=== PATIENT | female | born 1975 | race Caucasian/White ===

== ENCOUNTER 2020-12-23 15:23 | Emergency (ER) | payer SELFPAY ==
[~2020-12-23] VITALS: Ht 160 cm; Wt 113.4 kg
== END 2020-12-23 18:01 | disposition left against medical advice (07) ==
LOC: ER 15:23
DX: Z71.51 Drug abuse counseling and surveillance of drug abuser (principal); Z53.21 Procedure and treatment not carried out due to patient leaving prior to being seen by health care provider
CPT/HCPCS: 99283

== ENCOUNTER 2020-12-24 07:31 | Emergency (ER) | payer SELFPAY ==
[~2020-12-24] VITALS: Ht 160 cm; Wt 113.4 kg
[2020-12-24 08:38] LABS: BASOPHILS ABSOLUTE AUTO 0.03 K/mm3 (0.00-0.23); BASOPHILS PERCENT AUTO 0 % (0-2); EOSINOPHILS ABSOLUTE AUTO 0.06 K/mm3 (0.00-0.68); EOSINOPHILS PERCENT AUTO 1 % (0-6); Hematocrit 43.4 % (33.0-51.0); Hemoglobin 14.3 g/dL (11.5-16.0); IMMATURE GRAN ABSOLUTE AUTO 0.03 K/mm3 (0.00-0.10); IMMATURE GRAN PERCENT AUTO 0 % (0-1); LYMPHOCYTES ABSOLUTE AUTO 1.28 K/mm3 (0.84-5.20); LYMPHOCYTES PERCENT AUTO 12 % (21-46); MONOCYTES PERCENT AUTO 5 % (4-13); Mean Corpuscular HGB 28.4 pg (26.0-34.0); Mean Corpuscular HGB Conc 32.9 g/dL (31.5-36.5); Mean Corpuscular Volume 86 fL (80-100); Mean Platelet Volume 9.4 fL (9.1-12.4); NEUTROPHILS ABSOLUTE AUTO 8.74 K/mm3 (1.96-9.15); NEUTROPHILS PERCENT AUTO 82 % (41-73); Platelet Count 355 K/mm3 (150-400); RDW Coefficient Variation 12.8 % (11.7-14.2); RDW Standard Deviation 39.9 fL (35.1-46.3); Red Blood Cell Count 5.03 M/mm3 (3.80-5.20); White Blood Cell Count 10.64 K/mm3 (4.00-11.30)
[2020-12-24 09:00] LABS: Alanine Aminotransfer (ALT/SGP 32 U/L (12-78); Albumin, Blood 3.4 g/dL (3.4-5.0); Albumin/Globulin Ratio 0.8 (0.8-1.8); Alk Phos 74 U/L (50-136); Anion Gap 6 mmol/L (6-16); Aspartate Aminotrans (AST/SGOT 20 U/L (12-37); Bilirubin, Total 0.6 mg/dL (0.1-1.0); Blood Urea Nitrogen 6 mg/dL (8-24); Bun/Creatinine Ratio 11.6 (12.0-20.0); CO2, Blood 24 mmol/L (21-32); Calcium, Blood 8.9 mg/dL (8.5-10.1); Chloride, Blood 107 mmol/L (98-108); Creatinine, Blood 0.52 mg/dL (0.40-1.00); Globulin, Blood 4.3 g/dL (2.2-4.0); Glomerular Filtration Rate >60 (60-); Glucose, Blood 123 mg/dL (70-99); Potassium, Blood 3.8 mmol/L (3.5-5.5); Sodium, Blood 137 mmol/L (136-145); Total Protein, Blood 7.7 g/dL (6.4-8.2)
[2020-12-24 10:27] LABS: Source, Urine Catheter
[2020-12-24 10:34] LABS: Appearance, Urine Clear (Clear); Bilirubin, Urine Neg (Neg); Blood, Urine Neg (Neg); Color, Urine Yellow (P-Yellow); Glucose Qualitative, Urine Neg (Neg); Ketones, Urine 2+ (Neg); Leukocyte Esterase, Urine Neg (Neg); Nitrite, Urine Neg (Neg); Protein, Urine Neg (Neg); Urobilinogen, Urine NORM (Normal)
== END 2020-12-24 16:02 | disposition home or self-care (01) ==
LOC: ER 07:31
PROVIDERS: Emergency Medicine
DX: F11.20 Opioid dependence, uncomplicated (principal); F17.210 Nicotine dependence, cigarettes, uncomplicated; Z71.51 Drug abuse counseling and surveillance of drug abuser
CPT/HCPCS: 36415; 80053; 81003; 83690; 84703; 85025; 93005; 93010; 96374; 96375; 99284-25; A9270; J1790; J2550; P9612

== ENCOUNTER → 2021-02-24 | Outpatient (CLI) | payer OTHER ==
[2021-02-24 15:22] LABS: Source, Urine Clean Catch
[2021-02-24 17:51] LABS: Appearance, Urine Clear (Clear); Bilirubin, Urine Neg (Neg); Blood, Urine Neg (Neg); Color, Urine Yellow (P-Yellow); Glucose Qualitative, Urine Neg (Neg); Ketones, Urine Neg (Neg); Leukocyte Esterase, Urine Neg (Neg); Nitrite, Urine Neg (Neg); Protein, Urine 1+ (Neg); Specific Gravity, Urine 1.015 (1.003-1.022); Urobilinogen, Urine NORM (Normal)
== END | disposition home or self-care (01) ==
LOC: LAB 15:20 → LAB SHORT 15:20
PROVIDERS: Family Medicine
DX: I10 Essential (primary) hypertension (principal)
CPT/HCPCS: 82043; 87086

== ENCOUNTER 2022-01-02 09:13 | Inpatient (IN) | payer OTHER ==
[~2022-01-02] VITALS: Ht 160 cm; Wt 112.0 kg
[2022-01-02 10:32] LABS: BASOPHILS ABSOLUTE AUTO 0.07 K/mm3 (0.00-0.23); BASOPHILS PERCENT AUTO 0 % (0-2); EOSINOPHILS ABSOLUTE AUTO 0.11 K/mm3 (0.00-0.68); EOSINOPHILS PERCENT AUTO 1 % (0-6); Hematocrit 42.6 % (33.0-51.0); IMMATURE GRAN ABSOLUTE AUTO 0.13 K/mm3 (0.00-0.10); IMMATURE GRAN PERCENT AUTO 1 % (0-1); LYMPHOCYTES PERCENT AUTO 3 % (21-46); MONOCYTES ABSOLUTE AUTO 0.24 K/mm3 (0.16-1.47); MONOCYTES PERCENT AUTO 1 % (4-13); Mean Corpuscular HGB 28.4 pg (26.0-34.0); Mean Corpuscular HGB Conc 32.9 g/dL (31.5-36.5); Mean Corpuscular Volume 86 fL (80-100); Mean Platelet Volume 9.3 fL (9.1-12.4); NEUTROPHILS ABSOLUTE AUTO 17.76 K/mm3 (1.96-9.15); NEUTROPHILS PERCENT AUTO 94 % (41-73); Platelet Count 307 K/mm3 (150-400); RDW Coefficient Variation 13.2 % (11.7-14.2); RDW Standard Deviation 41.1 fL (35.1-46.3); Red Blood Cell Count 4.93 M/mm3 (3.80-5.20); White Blood Cell Count 18.81 K/mm3 (4.00-11.30)
[2022-01-02 10:37] LABS: Influenza A, PCR NEGATIVE (NEGATIVE); Influenza B, PCR NEGATIVE (NEGATIVE); Resp Syncytial Virus, PCR NEGATIVE (NEGATIVE); SARS-Cov-2 (COVID-19) PCR, MMC NEGATIVE (NEGATIVE)
[2022-01-02 10:45] LABS: Albumin, Blood 2.7 g/dL (3.4-5.0); Albumin/Globulin Ratio 0.6 (0.8-1.8); Bilirubin, Direct 0.2 mg/dL (0.0-0.3); Bilirubin, Indirect 0.6 mg/dL (0.1-0.7); Bilirubin, Total 0.8 mg/dL (0.1-1.0); Bun/Creatinine Ratio 10.8 (12.0-20.0); Calcium, Blood 8.4 mg/dL (8.5-10.1); Creatinine, Blood 0.74 mg/dL (0.40-1.00); Globulin, Blood 4.9 g/dL (2.2-4.0); Magnesium, Blood 1.5 mg/dL (1.6-2.4); Phosphorus, Blood 1.6 mg/dL (2.5-4.9); Total Protein, Blood 7.6 g/dL (6.4-8.2)
[2022-01-02] MEDS ORDERED: Aspir 8181 MG PO (15:33)
[2022-01-02] MEDS ORDERED: Vitamin D1000 UNI1 PO (15:33)
[2022-01-02] MEDS ORDERED: GABA300 PO (15:35)
--- NOTE | 2022-01-02 15:37 | NUR ---
PT ADMITTED TO 356 AT 1415. REPORT RECEIVED FROM MEL READ IN ER. PT TX TO BED, PARTIAL BEDBATH GIVEN DUE TO COVERED IN URINE. WOUNDS TO LEGS PHOTOGRAPHED AND CLEANSED WITH WOUND CLEANSER, PATTED DRY WITH GAUZE AND COVERED WITH EXUDRY PADS AND WRAPPED WITH KERLEX AND SECURED WITH TAPE. WOUNDS TO BOTH LEGS DRAINING LARGE AMOUNT OF CLEAR NON ODOROUS DRAINAGE. SOME WOUNDS APPEAR TO HAVE WHITE TOP SO PLACED IN CONTACT ISOLATION PRECAUTION. IV FLUIDS STARTED AT WO X 1000 MLS AFTER VANCO FINISHED INFUSING. PT IS A/O X 4 REPORTS PAIN TOLERABLE EXCEPT WHEN MOVING LEGS. ON BEDREST AT THIS TIME. PURWICK PLACED FOR PT COMFORT. ADVISED HER TO HOLD URINE SHE IS CONTINENT AND INFORMED HER WE NEED A URINE SAMPLE TO CHECK FOR INFECTION AND COMPLETE TEST. PT VU. WILL OBTAIN SAMPLE VIA BEDPAN WHEN SHE REPORTS SHE HAS TO URINATE. SPOUSE IN TROOM WITH PT.
[2022-01-02 17:06] LABS: Source, Urine Straight Cath
[2022-01-02 17:11] LABS: Appearance, Urine Hazy (Clear); Bilirubin, Urine Neg (Neg); Blood, Urine 2+ (Neg); Color, Urine Amber (P-Yellow); Glucose Qualitative, Urine Neg (Neg); Ketones, Urine Neg (Neg); Leukocyte Esterase, Urine 3+ (Neg); Nitrite, Urine Pos (Neg); Protein, Urine 2+ (Neg); Urobilinogen, Urine 1+ (Normal)
[2022-01-02 17:17] LABS: White Blood Cells, Urine 25-50 /hpf (0-5)
[2022-01-02 17:18] LABS: Bacteria Many /hpf; Squamous Epithelial Cells Few /hpf (Few); Transitional Epithelial Cells Rare /hpf (0-Rare)
--- NOTE | 2022-01-02 18:08 | NUR ---
SHIFT SUMMARY: PT A/O X 4 BEDREST AT THIS TIME EXCEPT TO GO TO THE BATHROOM. PURWICK IN PLACE PT HAS NOT BEEN ABLE TO GET UP IN TIME DUE TO URGENCY. DRAINING PHOEBE COLORED URINE. PT WOUNDS PHOTOGRAPHED, CLEANSED AND DRESSINGS APPLIED DUE TO EXCESSIVE DRAINAGE. PT PLACED IN CONTACT PRECAUTIONS UNTIL CULTURE REPORT RECEIVED WOUNDS LOOK SUSPICIOUS OF MRSA. PT PAIN MANAGED AT THIS TIME. PT REPORTS WOUNDS DEVELOPED 10 DAYS AGO AND PROGRESSIVELY WORSENED. PT RESTING IN BED WATCHING TV AT THIS TIME. SPOUSE IN ROOM. PT ATE 100% OF MEAL AND HAS NO COMPLAINTS AT THIS TIME. WILL REPORT TO NOC RN.
--- NOTE | 2022-01-03 04:24 | NUR ---
PT AT START OF SHIFT WITH FEVER (102.1/101.7). MEDICATED WITH TYLENOL AND TORADOL. PT ALSO C/O OF PAIN TO BLE. THIS MORNING PT CALLED CRYING IN PAIN STATES SHE HAS SEVERE PAIN TO HER RUQ AND TENDER WHEN TOUCHED/PRESSED. DENIES ANY HX OF GALLBLADDER ISSUES. PT STATES PAIN WAS THERE ALL NIGHT HOWEVER JUST RECENTLY IT BECAME SEVERE. PT MEDICATED WITH TORADOL AND REPORTS PAIN AFTERWARDS BEING A 9. UPDATED WITH ORDERS FOR RUQ ULTRASOUND, FENTANYL X1 DOSE, AND CBC/CMP. DRESSINGS TO BLE CHANGED.
[2022-01-03 15:36] LABS: BASOPHILS ABSOLUTE AUTO 0.02 K/mm3 (0.00-0.23); BASOPHILS PERCENT AUTO 0 % (0-2); EOSINOPHILS ABSOLUTE AUTO 0.06 K/mm3 (0.00-0.68); EOSINOPHILS PERCENT AUTO 1 % (0-6); Hematocrit 37.6 % (33.0-51.0); Hemoglobin 12.4 g/dL (11.5-16.0); IMMATURE GRAN ABSOLUTE AUTO 0.15 K/mm3 (0.00-0.10); IMMATURE GRAN PERCENT AUTO 1 % (0-1); LYMPHOCYTES ABSOLUTE AUTO 0.62 K/mm3 (0.84-5.20); LYMPHOCYTES PERCENT AUTO 5 % (21-46); MONOCYTES ABSOLUTE AUTO 0.74 K/mm3 (0.16-1.47); MONOCYTES PERCENT AUTO 6 % (4-13); Mean Corpuscular HGB 28.4 pg (26.0-34.0); Mean Corpuscular Volume 86 fL (80-100); Mean Platelet Volume 9.9 fL (9.1-12.4); NEUTROPHILS ABSOLUTE AUTO 10.92 K/mm3 (1.96-9.15); NEUTROPHILS PERCENT AUTO 87 % (41-73); Platelet Count 273 K/mm3 (150-400); RDW Coefficient Variation 13.1 % (11.7-14.2); RDW Standard Deviation 40.8 fL (35.1-46.3); Red Blood Cell Count 4.37 M/mm3 (3.80-5.20); White Blood Cell Count 12.51 K/mm3 (4.00-11.30)
[2022-01-03 15:53] LABS: Albumin/Globulin Ratio 0.5 (0.8-1.8); Bilirubin, Total 0.5 mg/dL (0.1-1.0); Bun/Creatinine Ratio 18.4 (12.0-20.0); Calcium, Blood 7.9 mg/dL (8.5-10.1); Creatinine, Blood 0.87 mg/dL (0.40-1.00); Globulin, Blood 4.2 g/dL (2.2-4.0); Potassium, Blood 3.4 mmol/L (3.5-5.5); Total Protein, Blood 6.2 g/dL (6.4-8.2)
--- NOTE | 2022-01-03 17:45 | NUR ---
SHIFT SUMMARY: PT RESTING IN BED AT THE BEGGINNING OF THE SHIFT. PT STATED NO PAIN THROUGHOUT THE SHIFT. PT BLOOD CULTURES POSTIVE FOR GRAM NEGATIVE BACTERIA. PT WILL CONTIUNE ROCEPHIN IV ANTIBIOTICS. PT PPIV WERE DC AND A POWERGLIDE WAS INSERTED IN HER CAMRYN. DR. PETERS DC VANCOMYCIN IV ANTIBIOTICS. PT HAS A WOUND CONSTULTATION FOR BLE. PT WOUND ON RLE CONTIUNES TO HAVE CLEAR YELLOW DISCHARGE. DR. PETERS CHANGE WOUND DRESSING TO OPEN AIR. PT HAS NASUEA TOWARDS THE END OF THE SHIFT. PT GIVEN PO ZOFRAN PER EMAR PROTOCOL. PT HAD HER BOYFRIEND VISIT AT THE END OF THE SHIFT. PT WAS FALLING ASLEEP IN THE MIDDLE OF A CONVERSATION. PT QUICKLY AUROSED WHEN ASKED IF SHE WAS SLEEPY. DR. PETERS ORDERED POTASSIUM AND LASIX TO THE EMAR. PT RESTING IN BED WITH CALL LIGHT WITHIN REACH.
[2022-01-03 20:25] LABS: Vancomycin, Trough 23.9 ug/mL (5.0-10.0)
--- NOTE | 2022-01-04 05:17 | NUR ---
SUMMARY: PT A/OX4, IS PLEASANT AND COOPERATIVE W/CARE AND CALLS APPROPRIATELY TO SPECIFY NEEDS. BLE CELLULITIS W/BOTH INTACT AND POPPED BLISTERS OBSERVED. LEGS LEFT ALBERT PER MD INSTRUCTION AND AIR CHUCKS REPLACED PRN FOR WEAPING. LEGS ELEVATED IN BED. PUREWIC CATH IS IN PLACE FOR WEAKNESS, LIMITED MOBILITY R/T CELLULITIS AND URGE INCONTINENCE. NS AT TKVO TO PG D/T PT BEING DIFFICULT IV START. VANCOMYCIN BEING MANAGED BY PHARMACY AND WAS RECIEVED THIS AM. TRAZADONE PROVIDED AT HS PER PT REQUEST AND PT SLEPT MUCH OF NOCTE. NO ACUTE CHANGES, VSS/AFEBRILE. WCTM AND REPORT TO DAY RN.
[2022-01-04 05:31] LABS: Hematocrit 35.2 % (33.0-51.0); Hemoglobin 11.5 g/dL (11.5-16.0); Mean Corpuscular HGB 28.2 pg (26.0-34.0); Mean Corpuscular HGB Conc 32.7 g/dL (31.5-36.5); Mean Corpuscular Volume 86 fL (80-100); Platelet Count 263 K/mm3 (150-400); RDW Coefficient Variation 13.2 % (11.7-14.2); RDW Standard Deviation 41.5 fL (35.1-46.3); Red Blood Cell Count 4.08 M/mm3 (3.80-5.20); White Blood Cell Count 9.82 K/mm3 (4.00-11.30)
[2022-01-04 06:02] LABS: Anion Gap 7 mmol/L (6-16); Blood Urea Nitrogen 19 mg/dL (8-24); Bun/Creatinine Ratio 18.3 (12.0-20.0); CO2, Blood 26 mmol/L (21-32); Chloride, Blood 99 mmol/L (98-108); Creatinine, Blood 1.04 mg/dL (0.40-1.00); Glomerular Filtration Rate 67 (60-); Glucose, Blood 121 mg/dL (70-99); Magnesium, Blood 1.7 mg/dL (1.6-2.4); Phosphorus, Blood 3.5 mg/dL (2.5-4.9); Potassium, Blood 3.3 mmol/L (3.5-5.5); Sodium, Blood 132 mmol/L (136-145)
--- NOTE | 2022-01-04 09:00 | NUR ---
PT PLEASANT COOP A/O X3 ABLE TO TELL ME DATE, AGE , PLACE, EVENT, HOSP. PRESIDENT. STATES HOMELESS, BUT LIVES IN CAR WITH . STATES NEITHER WORK. H/R REG, NO MURMUR NOTED. NO TELE. LUNGS CLEAR T/O LIGHTLY DIM BASES. RESP EASY, UNLABORED ON R/A. BT X4 LAST BM YEST PER PT. VOIDS PERIWICK DRAINING TO SUCTION ON WLL. LOW SUCTION. LEGS BELOW KNEES SWOLLEN, WARM RED, BLISTERS. SEE PIX IN CHART. WOUND CLINIC TO COME SEE PT AND MAKE ORDERS FOR BEST PLAN. BED IN LOW POSITION, CALLLITE IN REACH, CALLS APROP. .
--- NOTE | 2022-01-04 09:48 | NUR ---
WOUND ASSESSMENT AND PHOTO IN HARD CHART. WOUND CARE ORDERS IN [facility].
--- NOTE | 2022-01-04 15:36 | NUR ---
PT C/O DIFFICULTY CHEWING, NO TEETH. CHANGED TO SOFT BITE DIET PER HER REQUEST
--- NOTE | 2022-01-04 17:01 | NUR ---
Arrived to Pt's room with BEHAVIORAL SERVICES TECH activated. Pt became non responsive and barely breathing. Pt given Narcan with good effect. Spoke with spouse Weston out in the cerrato. Spouse reports Pt starting slurring her words during visit. Provided update on plan of care to spouse. Spoke with jessenia and plan is for Pt to transfer to ICU with PCU status. Palliative Care will remain available for therapeutic visits.
--- NOTE | 2022-01-04 17:07 | NUR ---
Responding to Code Blue, re-assigned Rapid Response This insulation blower identified the Pts. spouse in the hallway while the rapid team worked on Pt. spouse had visited Pt. prior to the code. Spouse verbalized that he had contacted the nurse when Pt. displayed evidence of slurred speech and became non responsive. Spouse respected the boundaries and allowed Medical team to work with Pt. Spouse displayed evidence of understanding the reasons for moving the Pt. to a different room. Pt. relocated to ICU 15. This insulation blower recommended that the spouse bring the Pts. dog to the vehicle. Spouse returned to ICU where he was asked to wait in the hallway until staff got the settled in to her new room.
--- NOTE | 2022-01-04 17:26 | NUR ---
0810 CBG 43 PER AIDE. PT AWAKE, TALKING. DENIES DISCOMFORT. GAVE 2 APPLE JUICE, SOME CHEESE. PT KRISHNA WELL. CBG WAS 126 AT 0500 AM LABS. 0830 CBG 61. PT BEGINNING TO EAT BREAKFAST. HAILEE SYMPTOMS. 0930 PT THROUGH BREAKFAST. CBG [address] PETERS WAS NOTIFIED ON LOW CBG THIS AM IN [place].
--- NOTE | 2022-01-04 17:29 | NUR ---
RAPID RESPONSE/ CODE 1630 AIDE CALLED ME TO RM. STATES PT JUST STARING INTO SPACE. IN ROOM RECENTLY. STATES SOMETHING WRONG. I ASKED MUSIC VIDEO PRODUCER NICHOLE TO COME TO ROOM WITH ME. WHEN WE CAME TO ROOM, PT NOT RESPONDING TO SHOUT, OR TO STERNAL RUB. HEART BEAT FELT AT NECK AND AT RADIAL. PT BARELY BREATHING DURING CHECK. NICHOLE PLACED O2. I STARTED CPR, RAPID AND CODE CALLED. RESPIRATORY THERAPY CAME TO ROOM STARTED BAGGING. PT STILL UNRESPONSIVE. PT WAS ADMINISTERED NARCAN. PT AWOKE TO FULL CONSCIOUSNESS. PATIENT AND SPOUSE DENIES ANY AND ALL DRUG USE. PT TRANSFERRED TO ICU 16. REPORT CALLED TO KATE READ.
--- NOTE | 2022-01-04 18:25 | NUR ---
PT TRANSFERED TO ICU 15 FROM MEDICAL FLOOR A RAPID RESPONSE. PT IS A/O X4. HAS PAIN IN R HIP AND R KNEE. PT STATES SHE NEED SURGERY TO REPAIR. PT IS WITHDRAWN. VSS, NO SIGN OF RESPIRATORY DISTRESS. MONITORING IN ICU PCU STATUS. WOUNDS TO LOWER EXTREMITIES REWRAPPED WITH ABD PADS AND KERLEX DUE TO BEING SOILED. PT HAS BLISTERS AND OPEN SORES T/O LOWER EXTREMITIES.
--- NOTE | 2022-01-04 19:05 | NUR ---
Assumed care. Report received from dayshift RN. Pt resting in bed, alert and oriented, on room air. NS infusing at 500 ml/hr. Dressings in place on both lower extremities, wound photos in chart. No acute needs at this time, will continue to monitor.
[2022-01-05 04:09] LABS: Albumin, Blood 1.8 g/dL (3.4-5.0); Anion Gap 8 mmol/L (6-16); Blood Urea Nitrogen 18 mg/dL (8-24); Bun/Creatinine Ratio 19.1 (12.0-20.0); CO2, Blood 26 mmol/L (21-32); Calcium, Blood 8.1 mg/dL (8.5-10.1); Chloride, Blood 105 mmol/L (98-108); Creatinine, Blood 0.94 mg/dL (0.40-1.00); Glomerular Filtration Rate 76 (60-); Glucose, Blood 86 mg/dL (70-99); Phosphorus, Blood 4.7 mg/dL (2.5-4.9); Potassium, Blood 3.6 mmol/L (3.5-5.5); Sodium, Blood 139 mmol/L (136-145)
[2022-01-05 04:17] LABS: Hematocrit 34.3 % (33.0-51.0); Hemoglobin 11.1 g/dL (11.5-16.0); Mean Corpuscular HGB 28.2 pg (26.0-34.0); Mean Corpuscular HGB Conc 32.4 g/dL (31.5-36.5); Mean Corpuscular Volume 87 fL (80-100); Mean Platelet Volume 9.7 fL (9.1-12.4); Platelet Count 302 K/mm3 (150-400); RDW Coefficient Variation 13.4 % (11.7-14.2); RDW Standard Deviation 42.8 fL (35.1-46.3); Red Blood Cell Count 3.94 M/mm3 (3.80-5.20)
[2022-01-05 04:35] LABS: U Amphetamine Screen Not Detected; U Barbituate Screen Not Detected; U Benzodiazapine Screen Not Detected; U Buprenorphine Screen Not Detected; U Cannabinoids Screen Not Detected; U Cocaine Screen Not Detected; U Methadone Screen Not Detected; U Methamphetamine Screen Not Detected; U Opiates Screen Not Detected; U Oxycodone Screen Not Detected; U Phencyclidine Screen Not Detected; U Propoxyphene Screen Not Detected
--- NOTE | 2022-01-05 06:30 | NUR ---
Shift summary. Pt rested in bed throughout shift. Up to bedside commode with assistance. On room air, vs stable. No acute events, see shift assessment for further details. Will continue to monitor and report off to dayshift RN.
--- NOTE | 2022-01-05 08:07 | NUR ---
AM NOTE... ASSUMED CARE OF PT AT 0700, THE PT IS A&Ox4, SHE WAS ADMITTED FOR CELLULITIS OF THE BLE. THE PT CURRENTLY DENIES ANY PAIN. THE PT'S RIGHT LEG IS MORE SWOLLEN THAN THE LEFT AT 3+ EDEMA AND IS WARM TO THE TOUCH, PULSES FAINT BUT PRESENT. THE PT'S RIGHT LEG HAS 2+ EDEMA, PULSES FAINT BUT PRESENT. DRESSINGS ARE INTACT AT THIS TIME. THE PT IS ON RA WITH O2 SATS >95% L/S CLEAR T/O, RR IS 14-18. SHE IS IN SR IN THE 60'S-70'S BP IS STABLE WITH MAPS >65. BT PRESENT AND HYPOACTIVE, ABD IS SOFT AND NONTENDER TO PALPATION AT THIS TIME, THE PT DENIES ANY ABD DURING THIS ASSESSMENT. PER THE PT SHE STATES SHE HAS NOT HAD A BM SINCE PRIOR TO COMING TO THE HOSPITAL, LAST DOCUMENTED BM WAS 8/4 SIX DAYS AGO. THE PT HAS BEEN GEETING PO BOWEL CARE BUT REFUSING SOME DOSES. CALL LIGHT IN REACH WILL CONTINUE TO MONITOR.
--- NOTE | 2022-01-05 10:18 | NUR ---
Spiritual Care Visit. Pt. is awake and sitting in a recliner. Pt. welcomes my visit but is unsettled by her hopsitalization. Listen empathetically with a calming presence. Shared with Pt. that I was with her spouse the day before when she was brought down to ICU. Pt. displayed evidence of engagement. Prayed with Pt. who became mildly cathartic. Pt. invited this handbag framer to check on her.
--- NOTE | 2022-01-05 10:30 | NUR ---
PT UPDATE.... THE PT WORKED WITH PT/OT AND GOT UP TO THE BSC AND RECLINER CHAIR WITH 1P ASSIST W/FWW. THE PT SAT UP IN THE CHAIR WITH FEET UP FOR BREAKFAST. THE PT DENIES ANY ABD/CHEST PAIN AT THIS TIME. AT 1030 DR. PETERS AT THE BEDSIDE TO ASSESS THE PT, PT IS TO BE MEDICAL WITH TELE STATUS. WILL CONITNUE TO MONITOR.
--- NOTE | 2022-01-05 17:11 | NUR ---
SHIFT SUMMARY.... NO ACUTE NEGATIVE CHANGES NOTED THIS SHIFT. THE PT'S VS HAVE BEEN STABLE, NO EVENTS NOTED ON TELE AND NO EPISODES OF SOB. THE PT HAS BEEN ON RA T/O THIS SHIFT WITH O2 SATS >95%. THE PT HAS EATEN MOST OF HER MEALS AND USED THE BSC TO VOID. THE PT HAS NOT HAD A BM THIS SHIFT, SHE HAS NOT HAD A BM SINCE 12/30 PER THE PT. THE PT WAS GIVEN BOWEL CARE PER EMAR PT WAS ALSO GIVEN MILK OF MAG BUT HAS REFUSED A SUPPOSITORY AT THIS TIME. THE PT WENT TO CT TO R/O PE WHICH WAS NEGATIVE. AN ECHO IS ORDERED FOR 01/06. THE PT'S CAME THIS AFTERNOON TO VISIT THE PT, THE BROUGHT IN A SMALL DOG TO THE PT'S ROOM, STAFF WAS UNAWARE THAT HE HAD THE DOG. THE PT'S LEFT THE FACILITY AND LEFT THE DOG IN THE ROOM ALONE WITH THE PT. IT TOOK APROX 30 MINS FOR HE TO RETURN TO THE ROOM TO REMOVE THE DOG. THE PT'S WAS *AGAIN* EDUCATED ON THE FACILITIES POLICY ON DOGS/ANIMALS BEING ALLOWED INTO THE FACILITY. HE VERBALIZED HIS UNDERSTANDING AND LEFT THE UNIT. CALL LIGHT IN REACH WILL CONTINUE TO MONITOR UNTIL REPORT IS GIVEN TO ONCOMING RN.
[2022-01-05 17:32] LABS: Vancomycin, Trough 22.4 ug/mL (5.0-10.0)
--- NOTE | 2022-01-05 19:00 | NUR ---
Assumed care. Report received from dayshift RN. PT sleeping in bed at this time. On room air, vital signs stable. No acute needs, will continue to monitor.
--- NOTE | 2022-01-06 01:54 | NUR ---
REPORT RECIEVED FROM JOEL, MANAGER MANAGEMENT AND AWAITING PT T/F TO ROOM 329.
--- NOTE | 2022-01-06 03:46 | NUR ---
T/F AND SUMMARY: PT T/F TO ROOM 329 AT 0245. SHE T/F'D W/1PA TO BSC TO VOID THEN TO BED. PT MOVES SLOWLY BUT IS ABLE TO WT.BEAR AND T/F W/O ISSUES. SHE'S A/OX4 AND WAS ORIENTED TO NEW ROOM AND CALL SYSTEM. IV ABX RECIEVEED FOR BLE CELLULITIS AND DX'S REMAIN C/D/I. SHE DENIED PAIN AND ALL OTHER COMPLAINTS. PT NSR AT 60'S BPM ON TELEMTRY. NO RESPIRATORY OR CARDIAC DISTRESS OBSERVED. VSS/AFEBRILE, NO ACUTE CHANGES. WCTM AND REPORT TO DAY RN.
--- NOTE | 2022-01-06 04:35 | NUR ---
PT TRANSFERRED AT 0230. REPORT GIVEN TO MEDICAL FLOOR RN. VS STABLE AT TIME OF TRANSFER.
[2022-01-06 05:34] LABS: Hematocrit 33.8 % (33.0-51.0); Hemoglobin 11.1 g/dL (11.5-16.0); Mean Corpuscular HGB 28.5 pg (26.0-34.0); Mean Corpuscular HGB Conc 32.8 g/dL (31.5-36.5); Mean Corpuscular Volume 87 fL (80-100); Mean Platelet Volume 9.6 fL (9.1-12.4); Platelet Count 290 K/mm3 (150-400); RDW Coefficient Variation 13.2 % (11.7-14.2); RDW Standard Deviation 42.4 fL (35.1-46.3); Red Blood Cell Count 3.89 M/mm3 (3.80-5.20); White Blood Cell Count 8.84 K/mm3 (4.00-11.30)
[2022-01-06 05:54] LABS: Albumin, Blood 1.8 g/dL (3.4-5.0); Anion Gap 4 mmol/L (6-16); Blood Urea Nitrogen 14 mg/dL (8-24); Bun/Creatinine Ratio 17.1 (12.0-20.0); CO2, Blood 29 mmol/L (21-32); Calcium, Blood 8.3 mg/dL (8.5-10.1); Chloride, Blood 106 mmol/L (98-108); Creatinine, Blood 0.82 mg/dL (0.40-1.00); Glomerular Filtration Rate 89 (60-); Glucose, Blood 98 mg/dL (70-99); Phosphorus, Blood 3.5 mg/dL (2.5-4.9); Potassium, Blood 3.8 mmol/L (3.5-5.5); Sodium, Blood 139 mmol/L (136-145)
--- NOTE | 2022-01-06 18:30 | NUR ---
SHIFT SUMMARY A&O X 4. VSS. PLEASANT & COOPERATIVE WITH ALL CARE. APPETITE GOOD. HAS BEEN GETTING HERSELF TO THE BSC. TOOK A SHOWER TODAY. DRESSING CHANGES DONE AFTER HER SHOWER. PT HAD A LOW BG OF 68 BEFORE DINNER. OJ GIVEN AND DINNER EATEN. CONTINUING TO GET IV ANTI BIOTICS PER MD ORDERS.
--- NOTE | 2022-01-07 04:03 | NUR ---
SHIFT SUMMARY: A/OX4, 1 PERSON STANDBY ASSIST- STAND AND PIVOT TO BEDSIDE COMMODE. NO COMPLAINTS OF PAIN THROUGHOUT THE NIGHT. LEGS CONTINUE TO DRAIN/WEEP FLUID- ADDITIONAL DRESSING CHANGE COMPLETED TONIGHT DUE TO DRAINAIGE SATURATING DRESSING. CONTINUED COMMUNICATION WITH FAMILY ON HOSPITAL POLICY FOR VISITATION GUIDELINES. PT CONTINUES TO CALL APPROPRIATELY THROUGHOUT THE NIGHT. BED ALARM ACTIVATED, BED IN LOW POSITION, CALL WILEY AND BELONGINGS IN REACH.
[2022-01-07 07:05] LABS: Anion Gap 5 mmol/L (6-16); Blood Urea Nitrogen 12 mg/dL (8-24); Bun/Creatinine Ratio 13.6 (12.0-20.0); CO2, Blood 31 mmol/L (21-32); Calcium, Blood 8.8 mg/dL (8.5-10.1); Chloride, Blood 104 mmol/L (98-108); Creatinine, Blood 0.88 mg/dL (0.40-1.00); Glomerular Filtration Rate 82 (60-); Glucose, Blood 103 mg/dL (70-99); Phosphorus, Blood 4.3 mg/dL (2.5-4.9); Potassium, Blood 4.4 mmol/L (3.5-5.5); Sodium, Blood 140 mmol/L (136-145)
[2022-01-07] MEDS ORDERED: Acetaminophen325 M1 PO (11:50)
[2022-01-07] MEDS ORDERED: CEPH500 PO (11:50)
[2022-01-07] MEDS ORDERED: VISBIOME 112.51 EACH PO (11:50)
[2022-01-07] MEDS ORDERED: FURO20 PO (11:50)
[2022-01-07] MEDS ORDERED: MIRALAX17 GM PO (11:51)
[2022-01-07] MEDS ORDERED: POTA10T PO (11:51)
--- NOTE | 2022-01-07 14:43 | NUR ---
DC HOME. RECEIVED DC ORDERS. DC INSTRUCTIONS GIVEN TO PT. PT IS TO FOLLOW UP WITH PCP TO OBTAIN A CARDIOLOGY REFERRAL. PCP OFC WILL REACH OUT TO PT TO MAKE F/U APPT. PT IS TO ALSO F/U WITH WOUND CLINIC. WOUND CLINIC STAFF WILL REACH OUT TO PT TO MAKE INITIAL APPT. WOUND ORDERS HAVE BEEN FAXED TO WOUND CLINIC. POWER GLIDE DC'D WITH CATH TIP INTACT, NO REDNESS OR SWELLING NOTED AT SITE. DC INSTRUCTIONS GIVEN TO PT WITH GOOD UNDERSTANDING VERBALIZED. WOUND DRESSING SUPPLIES PROVIDED TO PT UNTIL SHE CAN GET IN TO SEE WOUND CLINIC WITH INSTRUCTIONS ON HOW TO CHANGE DRESSINGS. NEW SCRIPTS FAXED TO [facility] PER PT PREFERENCE. PT TO PV VIA W/C WITH ALL PERSONAL BELONGINGS. SO TO DRIVE PT HOME.
== END 2022-01-07 14:32 | disposition home or self-care (01) | DRG 871 ==
LOC: ER 09:13 → MEDS 12:22 → ICUW 01-04 17:00 → MEDS 01-06 02:45
PROVIDERS: Internal Medicine; Physician Assistant; ADMIT Family Medicine
DX: A41.9 Sepsis, unspecified organism (principal); G92.8 Other toxic encephalopathy; I50.31 Acute diastolic (congestive) heart failure; J96.01 Acute respiratory failure with hypoxia; I33.0 Acute and subacute infective endocarditis; L03.115 Cellulitis of right lower limb; L97.929 Non-pressure chronic ulcer of unspecified part of left lower leg with unspecified severity; L97.919 Non-pressure chronic ulcer of unspecified part of right lower leg with unspecified severity; E87.1 Hypo-osmolality and hyponatremia; Z68.41 Body mass index [BMI] 40.0-44.9, adult; Z20.822 Contact with and (suspected) exposure to COVID-19; E83.42 Hypomagnesemia; E66.01 Morbid (severe) obesity due to excess calories; E11.65 Type 2 diabetes mellitus with hyperglycemia; I11.0 Hypertensive heart disease with heart failure; E87.6 Hypokalemia; E83.39 Other disorders of phosphorus metabolism; F17.210 Nicotine dependence, cigarettes, uncomplicated; F15.10 Other stimulant abuse, uncomplicated; F11.129 Opioid abuse with intoxication, unspecified; Z79.82 Long term (current) use of aspirin; Z79.899 Other long term (current) drug therapy
CPT/HCPCS: 0241U; 36415; 51701; 71260; 76705; 80048; 80053; 80069; 80076; 80202; 81001; 81025; 82947; 83036; 83605; 83735; 83880; 84100; 84145; 84484; 85025; 85027; 87040; 87077; 87086; 87186; 93306; 94760; 96365-59; 96366-59; 96375-59; 97110; 97162; 97166; 97530; 97535; 99285-25; A9270; J0696; J1650; J1885; J1940; J2310; J2405; J3010; J3370; J7030; J7040; J7060; Q9967

== ENCOUNTER 2022-01-19 01:17 | Day surgery (SDC) | payer OTHER ==
[~2022-01-19 01:17] MED LIST: Acetaminophen325 M1 PO; Aspir 8181 MG PO; CEPH500 PO; FURO20 PO; GABA300 PO; MIRALAX17 GM PO; POTA10T PO; VISBIOME 112.51 EACH PO; Vitamin D1000 UNI1 PO
== END 2022-01-19 23:27 | disposition home or self-care (01) ==
LOC: WOUND 01:17
DX: L03.115 Cellulitis of right lower limb (principal); L03.116 Cellulitis of left lower limb; L97.812 Non-pressure chronic ulcer of other part of right lower leg with fat layer exposed; L97.822 Non-pressure chronic ulcer of other part of left lower leg with fat layer exposed; I11.0 Hypertensive heart disease with heart failure; I50.31 Acute diastolic (congestive) heart failure; F17.200 Nicotine dependence, unspecified, uncomplicated; E66.9 Obesity, unspecified
CPT/HCPCS: 99406; A9270; G0463

== ENCOUNTER 2022-01-26 03:46 | Day surgery (SDC) | payer OTHER | END 2022-01-26 22:52 | disposition home or self-care (01) | LOC: WOUND 03:46 | DX: L03.115 Cellulitis of right lower limb (principal); L03.116 Cellulitis of left lower limb; I87.2 Venous insufficiency (chronic) (peripheral); I11.0 Hypertensive heart disease with heart failure; I50.31 Acute diastolic (congestive) heart failure; F17.200 Nicotine dependence, unspecified, uncomplicated; E66.9 Obesity, unspecified; Z59.00 Homelessness unspecified | CPT/HCPCS: 99406; A9270 ==

== ENCOUNTER 2022-03-04 13:12 | Inpatient (IN) | payer OTHER ==
[~2022-03-04] VITALS: Ht 160 cm; Wt 101.7 kg
[2022-03-04 14:40] LABS: BASOPHILS ABSOLUTE AUTO 0.06 K/mm3 (0.00-0.23); BASOPHILS PERCENT AUTO 0 % (0-2); EOSINOPHILS ABSOLUTE AUTO 0.09 K/mm3 (0.00-0.68); EOSINOPHILS PERCENT AUTO 0 % (0-6); Hematocrit 34.2 % (33.0-51.0); Hemoglobin 11.9 g/dL (11.5-16.0); IMMATURE GRAN ABSOLUTE AUTO 0.29 K/mm3 (0.00-0.10); IMMATURE GRAN PERCENT AUTO 1 % (0-1); LYMPHOCYTES ABSOLUTE AUTO 1.22 K/mm3 (0.84-5.20); LYMPHOCYTES PERCENT AUTO 6 % (21-46); MONOCYTES ABSOLUTE AUTO 1.53 K/mm3 (0.16-1.47); MONOCYTES PERCENT AUTO 8 % (4-13); Mean Corpuscular HGB 28.3 pg (26.0-34.0); Mean Corpuscular HGB Conc 34.8 g/dL (31.5-36.5); Mean Corpuscular Volume 81 fL (80-100); Mean Platelet Volume 9.4 fL (9.1-12.4); NEUTROPHILS ABSOLUTE AUTO 16.98 K/mm3 (1.96-9.15); NEUTROPHILS PERCENT AUTO 84 % (41-73); Platelet Count 481 K/mm3 (150-400); RDW Coefficient Variation 13.1 % (11.7-14.2); RDW Standard Deviation 38.7 fL (35.1-46.3); White Blood Cell Count 20.17 K/mm3 (4.00-11.30)
[2022-03-04 14:58] LABS: Albumin, Blood 2.1 g/dL (3.4-5.0); Albumin/Globulin Ratio 0.4 (0.8-1.8); Bilirubin, Total 0.4 mg/dL (0.1-1.0); Bun/Creatinine Ratio 15.3 (12.0-20.0); Calcium, Blood 8.7 mg/dL (8.5-10.1); Creatinine, Blood 0.79 mg/dL (0.40-1.00); Globulin, Blood 5.4 g/dL (2.2-4.0); Potassium, Blood 3.4 mmol/L (3.5-5.5); Total Protein, Blood 7.5 g/dL (6.4-8.2)
--- NOTE | 2022-03-04 18:31 | NUR ---
1744 RECEIVED PT TO RM 354 VIA GURNEY FROM ER. PT ABLE TO TX SELF TO BED, VERY SLOWLY AND PAINFULLY, AFTER STANDING FROM [place]. PT USING FWW TO ASSIST FOR STABILITY D/T PAIN AND SWELLING FROM BLE CELLULITIS. PT ADMITTED FOR SEPSIS R/T LE CELLULITIS. PT TO ER WITH C/O INCREASED PAIN, SWELLING, WEEPING, AND ERYTHEMA IN LE'S. PER REPORT FROM ROGER READ, PT HERE 2 MONTHS AGO FOR SAME THING AND D/C'D WITH ORDERS TO GO TO WOUND CENTER TO COMPLETE HEALING PROCESS. PT NONCOMPLIANT WITH F/U CARE. HX OF HTN, OBESITY, SMOKING, DRUG AND SUBSTANCE ABUSE. IVF'S AND ZOSYN STARTED IN ER. IV VANCO INFUSING UPON ADMISSION. URINE TOX ORDERED AND ATTEMPTED, BUT SAMPLE CONTAMINATED WITH STOOL. NEW HAT PLACED. PT RESTING QUIETLY AT THIS TIME. IVF'S INFUSING. CALL LT IN REACH.
--- NOTE | 2022-03-05 04:18 | NUR ---
COMPUTER VIDEO GAME DESIGNER SUMMARY NO ACUTE CHANGES. PT A/OX4. CONT TO RCV NS INF 125MLS/HR W/ALTERNATING ABOX. PT ON ROOM AIR; DENIES SOB. CELLULITIS TO BLE; WEEPING AND ODOROUS; CHUCKS PLACED UNDER LEGS; NOT CURRENTLY DRESSED. PICS TAKEN AND PLACED IN THE CHART. PT TEARY AND C/O PAIN; PT REPORTS HX OF BURSITIS/ARTHRITIS IN RIGHT HIP. CALLED DR RAVI; NEW ORDER FOR 15MG IV TORODOL Q8 HOURS. REMINDED PT OF NEED FOR UNCONTAMINATED URINE SAMPLE. PT DENIED NEED TO URINATE WHEN ASKED; URINE CONTAMINATED BY STOOL WHEN PT USED BSC. WILL CONT TO ATTEMPT TO COLLECT. PT ON TELE; SINUS TACHYCARDIA; PT DENIES CP. PT ADMITS TO USING HEROINE; STATES LAST USED WAS A MONTH AGO. PT UP TO BSC INDEPENDENT W/FWW. CALL LIGHT IN REACH.
[2022-03-05 05:14] LABS: Hematocrit 33.4 % (33.0-51.0); Hemoglobin 11.3 g/dL (11.5-16.0); Mean Corpuscular HGB 28.2 pg (26.0-34.0); Mean Corpuscular HGB Conc 33.8 g/dL (31.5-36.5); Mean Corpuscular Volume 83 fL (80-100); Mean Platelet Volume 9.6 fL (9.1-12.4); Platelet Count 418 K/mm3 (150-400); RDW Standard Deviation 39.6 fL (35.1-46.3); Red Blood Cell Count 4.01 M/mm3 (3.80-5.20)
[2022-03-05 05:48] LABS: Bun/Creatinine Ratio 13.6 (12.0-20.0); Calcium, Blood 8.4 mg/dL (8.5-10.1); Creatinine, Blood 1.03 mg/dL (0.40-1.00); Potassium, Blood 3.3 mmol/L (3.5-5.5)
[2022-03-05 17:21] LABS: U Amphetamine Screen DETECTED; U Barbituate Screen Not Detected; U Benzodiazapine Screen Not Detected; U Buprenorphine Screen Not Detected; U Cannabinoids Screen Not Detected; U Cocaine Screen Not Detected; U Methadone Screen Not Detected; U Methamphetamine Screen DETECTED; U Opiates Screen Not Detected; U Oxycodone Screen Not Detected; U Phencyclidine Screen Not Detected; U Propoxyphene Screen Not Detected
--- NOTE | 2022-03-05 17:43 | NUR ---
SHIFT SUMMARY PT SLEEPING AT START OF SHIFT, IVF'S INFUSING. PT WOKE FOR CARE AND REPORTED THAT SHE DID NOT WANT TO EAT BREAKFAST OR BE WOKE UP. PT HAS SLEPT MOST OF THE DAY, WAKING ONLY BRIEFLY FOR CARE. PT DID CALL TO GET UP TO BSC TO VOID, BUT CONTAMINATED URINE AGAIN SO TOX SCREEN COULD NOT BE SENT. PT LATER WOULD NOT GET UP TO BSC TO JUST VOID AND VOIDED IN BED. BED BATH AND LINEN CHANGE DONE. PT LATE THIS AFTERNOON DID GET UP TO BSC AND CLEAN CATCH OBTAINED AND SENT. WOUNDS TO 'S CONTINUE WEEPING; PADS UNDER LEGS CHANGED NEEDED. INPT WOUND CONSULT PLACED AND CALLED FOR WOUND CARE. TORADOL GIVEN FOR PAIN PER EMAR. NO FURTHER C/O. PT DOES GRIMACE WHEN GETTING UP TO EOB AND TO STAND. CALL LT IN REACH. WILL MONITOR.
[2022-03-06 04:05] LABS: Hematocrit 33.8 % (33.0-51.0); Hemoglobin 10.8 g/dL (11.5-16.0); Mean Corpuscular HGB 27.5 pg (26.0-34.0); Mean Corpuscular Volume 86 fL (80-100); Mean Platelet Volume 9.5 fL (9.1-12.4); Platelet Count 405 K/mm3 (150-400); RDW Coefficient Variation 13.4 % (11.7-14.2); RDW Standard Deviation 42.4 fL (35.1-46.3); Red Blood Cell Count 3.93 M/mm3 (3.80-5.20); White Blood Cell Count 12.37 K/mm3 (4.00-11.30)
[2022-03-06 04:27] LABS: Albumin, Blood 1.5 g/dL (3.4-5.0); Albumin/Globulin Ratio 0.3 (0.8-1.8); Bilirubin, Total 0.3 mg/dL (0.1-1.0); Bun/Creatinine Ratio 14.4 (12.0-20.0); Calcium, Blood 8.3 mg/dL (8.5-10.1); Creatinine, Blood 1.25 mg/dL (0.40-1.00); Globulin, Blood 4.6 g/dL (2.2-4.0); Potassium, Blood 3.3 mmol/L (3.5-5.5); Total Protein, Blood 6.1 g/dL (6.4-8.2)
[2022-03-06 04:47] LABS: Vancomycin, Trough 35.6 ug/mL (5.0-10.0)
--- NOTE | 2022-03-06 05:57 | NUR ---
OPERATIONS DEVELOPER SUMMARY PT SLEEPING INTERMITTANTLY T/O THE NIGHT. PATIENT REMAINS ON TELE W/NORMAL SINUS. VSS. PT TEARY AND C/O OF INTENSE BURING PAIN IN LEGS. REPOSITIONED AND ELEVATED LEGS. OBTAINED NEW ORDER FOR TORADOL 15MG IV Q6. RCV'D CRITICAL VALUE AT 0445 F/VANCO THROUGH OF 35.6. CONTACTED PHARMACY; [facility] D/C'D AND WILL DRAW ANOTHER [facility] TROUGH TOMORROW. LEG WOUNDS ARE WEEPY AND ODOROUS; REAMINING OPEN TO AIR. CALL LIGHT IN REACH.
--- NOTE | 2022-03-06 18:27 | NUR ---
END OF SHIFT SUMMARY: PATIENT SLEPT THROUGHOUT THE DAY. PATIENT APPEARED COMFORTABLE WHILE SLEEPING (BROW WAS SMOOTH, BODY WAS CALM, NO MOANING PRESENT). PATIENT REPORTED TO RN THAT SHE WAS COMFORTABLE. BLE ELEVATED IN THE BED ON MULTIPLE PILLOWS THROUGHOUT THE SHIFT. MODERATE TO SEVERE SEROUS DRAINAGE FROM THE LEFT LEG AND MILD TO MODERATE DRAINAGE FROM THE RIGHT LEG. EDEMA APPEARED TO IMPROVE BY THE END OF THE SHIFT. AT THE END OF THE SHIFT, PATIENT WAS ABLE TO TRANSFER TO THE BEDSIDE COMMODE AND THEN THE CHAIR. PATIENT MOVES SLOWLY AND REPORTS PAIN WHEN THE WOUNDS ARE TOUCHED. PATIENT ABLE TO GET TO THE C WITH MIN-MODERATE ASSISTANCE. PATIENT HAD A MODERATE APPETITE FOR DINNER. VENOUS DOPPLER COMPLETED TODAY. WOUND CULTURE SENT TO THE LAB. PATIENT TELEMETRY WAS NSR THROUGHOUT THE SHIFT.
--- NOTE | 2022-03-07 04:18 | NUR ---
PROJECT SURVEYOR SUMMARY NO ACUTE CHANGES. PT DROWSY WHEN AWAKE. SLEPT INTERMITTANTLY T/O THE NIGHT. PT WOULD WAKE AT TIMES C/O INTENSE BURNING IN HER LEGS; PT CLAMMY, CRYING, TREMBLING, AND INCREASED RESPIRATIONS DURING TIMES OF INCREASED PAIN. CHANGED POSITION AND ELEVATION OF BLE'S TO ALLEVIATE PAIN. TYLENOL P/EMAR. NEW POWER GLIDE INSERTED TO SUMEET. 1800 DOSE OF ANCEF W/HELD DUE TO NOT HAVE IV ACCESS. LEG WOUNDS REMAIN OPEN TO AIR AND DRAINING; SATURATED CHUCKS PADS REPLACED 3X DURING SHIFT. SWELLING IN LEFT LEG IS WORSE THAN RIGHT; VENOUS DOPPLER RULED OUT CLOT. PT CALLS F/HELP APPROPRIATELY; CALL LIGHT IN REACH.
[2022-03-07 09:05] LABS: BASOPHILS ABSOLUTE AUTO 0.07 K/mm3 (0.00-0.23); BASOPHILS PERCENT AUTO 1 % (0-2); EOSINOPHILS ABSOLUTE AUTO 0.39 K/mm3 (0.00-0.68); EOSINOPHILS PERCENT AUTO 3 % (0-6); Hematocrit 33.5 % (33.0-51.0); IMMATURE GRAN ABSOLUTE AUTO 0.29 K/mm3 (0.00-0.10); IMMATURE GRAN PERCENT AUTO 2 % (0-1); LYMPHOCYTES ABSOLUTE AUTO 1.31 K/mm3 (0.84-5.20); LYMPHOCYTES PERCENT AUTO 10 % (21-46); MONOCYTES ABSOLUTE AUTO 0.66 K/mm3 (0.16-1.47); MONOCYTES PERCENT AUTO 5 % (4-13); Mean Corpuscular HGB 28.1 pg (26.0-34.0); Mean Corpuscular HGB Conc 32.8 g/dL (31.5-36.5); Mean Corpuscular Volume 86 fL (80-100); Mean Platelet Volume 9.2 fL (9.1-12.4); NEUTROPHILS ABSOLUTE AUTO 11.14 K/mm3 (1.96-9.15); NEUTROPHILS PERCENT AUTO 80 % (41-73); Platelet Count 609 K/mm3 (150-400); RDW Coefficient Variation 13.8 % (11.7-14.2); Red Blood Cell Count 3.92 M/mm3 (3.80-5.20); White Blood Cell Count 13.86 K/mm3 (4.00-11.30)
[2022-03-07 09:16] LABS: Bun/Creatinine Ratio 8.4 (12.0-20.0); Creatinine, Blood 3.23 mg/dL (0.40-1.00); Potassium, Blood 3.9 mmol/L (3.5-5.5)
--- NOTE | 2022-03-07 10:07 | NUR ---
Partial echocardiogram completed.
--- NOTE | 2022-03-07 14:24 | NUR ---
DR NOTIFIED DR WHALEN NOTIFIED OF GFR OF 17 AND CREATININE PF 3.23 AT THIS TIME. HE IS REVIEWING THE CHART AND WILL INPUT NEW ORDERS INDICATED AND CONSULTS FROM NEPHROLOGY AND CARDIOLOGY.
--- NOTE | 2022-03-07 18:12 | NUR ---
WOUND ASSESSMENT AND PHOTO IN HARD CHART. DRESSING ORDERS IN [facility]. LLE WOULD BENEFIT FROM DEBRIDEMENT
--- NOTE | 2022-03-07 18:21 | NUR ---
SHIFT SUMMARY PT AXO, COOPERATIVE WITH CARE THOUGH WITHDRAWN. WHEN ASKED PATIENT STATED THAT PAIN WAS 8/10 BUT NEVER ASKED FOR PAIN MEDICATION THIS SHIFT. DR. WHALEN NOTIFIED ABOUT PAIN COVERAGE AT NIGHT, INCREASED 2100 GABAPENTIN, SEE EMAR. WOUND CARE CLININC NURSE CONSULTED, SURGICAL CONSULT ORDERED BUT HAS NOT BEEN CALLED YET. VSS. PT UP TO BATHROOM, HAD SHOWER, LINENS CHANGED AND HAIR BRAIDED BY THIS NURSE. BED IN LOW POSITION, CALL LIGHT WITHIN REACH
[2022-03-08 05:29] LABS: BASOPHILS ABSOLUTE AUTO 0.07 K/mm3 (0.00-0.23); BASOPHILS PERCENT AUTO 1 % (0-2); EOSINOPHILS ABSOLUTE AUTO 0.36 K/mm3 (0.00-0.68); EOSINOPHILS PERCENT AUTO 3 % (0-6); Hematocrit 33.1 % (33.0-51.0); Hemoglobin 10.6 g/dL (11.5-16.0); IMMATURE GRAN ABSOLUTE AUTO 0.52 K/mm3 (0.00-0.10); IMMATURE GRAN PERCENT AUTO 4 % (0-1); LYMPHOCYTES ABSOLUTE AUTO 1.33 K/mm3 (0.84-5.20); LYMPHOCYTES PERCENT AUTO 10 % (21-46); MONOCYTES ABSOLUTE AUTO 0.89 K/mm3 (0.16-1.47); MONOCYTES PERCENT AUTO 7 % (4-13); Mean Corpuscular HGB 27.2 pg (26.0-34.0); Mean Corpuscular Volume 85 fL (80-100); Mean Platelet Volume 9.2 fL (9.1-12.4); NEUTROPHILS PERCENT AUTO 76 % (41-73); Platelet Count 622 K/mm3 (150-400); RDW Coefficient Variation 13.9 % (11.7-14.2); RDW Standard Deviation 42.9 fL (35.1-46.3); White Blood Cell Count 12.87 K/mm3 (4.00-11.30)
--- NOTE | 2022-03-08 05:37 | NUR ---
CLINICAL STAFF ANESTHESIOLOGIST SUMMARY NO ACUTE CHANGES. PT REMAINS WITHDRAWN W/DEPRESSED AFFECT. A/OX4. ON TELE, NORMAL SINUS W/BBB. WOUNDS WERE DRESSED BY WOUND CARE NURSE DURING THE DAY AND ORDERS TO BE CHANGED DAILY; DRESSINGS ARE CDI. PT CONTINUING TO HAVE VERY LITTLE OUTPUT. PT TO BEDSIDE COMMODE W/1PA 1X; URINE MIXED WITH WATERY STOOL APROX 300MLS. SPECIMEN NOT APPROPRIATE FOR LAB URINE COLLECTION. DISCUSSED DOING A STRAIGHT CATH F/URINE SAMPLE; PATIENT REPORTS UNSUCCESSFUL ATTEMPTS IN THE PAST FOR CATHETER INSERTION; USED PURE WICK INSTEAD. CALLS APPROPRIATELY; CALL LIGHT IN REACH.
[2022-03-08 05:52] LABS: Albumin, Blood 1.4 g/dL (3.4-5.0); Albumin/Globulin Ratio 0.3 (0.8-1.8); Bilirubin, Total 0.3 mg/dL (0.1-1.0); Bun/Creatinine Ratio 8.1 (12.0-20.0); Calcium, Blood 8.6 mg/dL (8.5-10.1); Creatinine, Blood 4.2 mg/dL (0.40-1.00); Globulin, Blood 4.9 g/dL (2.2-4.0); Magnesium, Blood 1.7 mg/dL (1.6-2.4); Potassium, Blood 4.5 mmol/L (3.5-5.5); Total Protein, Blood 6.3 g/dL (6.4-8.2)
[2022-03-08 11:47] LABS: Source, Urine Clean Catch
[2022-03-08 11:54] LABS: Appearance, Urine Clear (Clear); Bilirubin, Urine Neg (Neg); Blood, Urine 2+ (Neg); Color, Urine Yellow (P-Yellow); Glucose Qualitative, Urine Neg (Neg); Ketones, Urine Neg (Neg); Leukocyte Esterase, Urine Neg (Neg); Nitrite, Urine Neg (Neg); Protein, Urine Neg (Neg); Specific Gravity, Urine 1.005 (1.003-1.022); Urobilinogen, Urine NORM (Normal)
[2022-03-08 12:13] LABS: Red Blood Cells, Urine 0-2 /hpf (0-2); Squamous Epithelial Cells Mod /hpf (Few)
[2022-03-08 12:15] LABS: Bacteria Few /hpf; Yeast/Fungi Urine Few /hpf
[2022-03-08 13:05] LABS: Eosinophils-Raw #,Urine 1
--- NOTE | 2022-03-08 16:41 | NUR ---
PATIENT WAS LETHARGIC, NOT FEELING WELL THIS SHIFT. MEDS TAKEN PRESCRIBED. PRN FOR NAUSEA GIVEN BEFORE LUNCH. WOUND CARE DONE. RED LINE COMING DOWN, BUT OPEN ULCERATED AREAS STILL WEEPING CLEAR TO ARIAS- THICKER EXUDATE. PAINFUL. LE RED TIGHT WITH EDEMA. SOME INTERMITTENT CONFUSION APPEARED TO BE NOTICED. ALERT TO VOICE AND ANSWERS APPROPRIATELY. ULTRASOUND COMPLETED. URINE SAMPLE COLLECTED FOR ANALYSIS.
[2022-03-09 04:56] LABS: BASOPHILS ABSOLUTE AUTO 0.08 K/mm3 (0.00-0.23); BASOPHILS PERCENT AUTO 1 % (0-2); EOSINOPHILS ABSOLUTE AUTO 0.45 K/mm3 (0.00-0.68); EOSINOPHILS PERCENT AUTO 4 % (0-6); Hematocrit 33.1 % (33.0-51.0); Hemoglobin 10.6 g/dL (11.5-16.0); IMMATURE GRAN ABSOLUTE AUTO 0.67 K/mm3 (0.00-0.10); IMMATURE GRAN PERCENT AUTO 6 % (0-1); LYMPHOCYTES ABSOLUTE AUTO 1.46 K/mm3 (0.84-5.20); LYMPHOCYTES PERCENT AUTO 14 % (21-46); MONOCYTES PERCENT AUTO 8 % (4-13); Mean Corpuscular HGB 27.2 pg (26.0-34.0); Mean Corpuscular Volume 85 fL (80-100); Mean Platelet Volume 9.1 fL (9.1-12.4); NEUTROPHILS ABSOLUTE AUTO 6.93 K/mm3 (1.96-9.15); NEUTROPHILS PERCENT AUTO 67 % (41-73); Platelet Count 621 K/mm3 (150-400); RDW Standard Deviation 43.5 fL (35.1-46.3); White Blood Cell Count 10.39 K/mm3 (4.00-11.30)
[2022-03-09 05:15] LABS: Bun/Creatinine Ratio 8.5 (12.0-20.0); Calcium, Blood 8.6 mg/dL (8.5-10.1); Creatinine, Blood 4.7 mg/dL (0.40-1.00); Potassium, Blood 4.6 mmol/L (3.5-5.5)
--- NOTE | 2022-03-09 06:07 | NUR ---
SHIFT SUMMARY: PT A/O X 3, STANDBY ASSIST WITH WALKER. PT PAIN MANAGED WITH TYLENOL. PT HAD NO COMPLAINTS THROUGH THE NIGHT. DRESSINGS TO LOWER EXTREMITIES WERE CHANGED ON DAY SHIFT AND REMAINED CDI. PLEASANT AND COOPERATIVE WITH CARE.
[2022-03-09 09:10] LABS: COMPLEMENT C3, SERUM 174 mg/dL (82-167); COMPLEMENT C4, SERUM 35 mg/dL (12-38)
--- NOTE | 2022-03-09 19:32 | NUR ---
SHIFT SUMMARY 46-YEAR-OLD FEMALE, A&O X4, QUIET AND RESTING MOST OF DAY. POWER GLIDE TO R UPPER ARM. TELE AT SINUS RHYTHYM, HR 79. PTN WITH BILATERIAL CELLULITIS TO LOWER EXTREMITIES, LEFT GREATER THAN RIGHT. RIGHT LOWER EXTREMITY CLEANED AND DRESSED WITH CALCIUM ALGINATE TO 3 SUPERFICIAL FULL THICKNESS WOUNDS TO THE POSTERIOR PART OF THE LEG , WHILE LEFT LOWER EXTREMITY HAD 3 AREAS TO THE ANTERIOR LEG THAT WERE INVOLVED MORE TISSUE. CLEANED AND DRESSED BOTH LEGS WITH CALCIUM ALGINATE TO WOUND BEDS, COVERED WITH ABD, AND WRAPPED LOOSLEY TO COVER. PTN DID APPEAR UNCOMFORTABLE WITH PROCESS WITH TYLENOL USED FOR PAIN RELIEF. PTN HAS CHRONIC LOWER EXTREMITY PAIN RELATED TO NEUROPATHY. EDEMA IS PRESENT IN BOTH LOWER LEGS AND FEET. CONTINUE TO MONITOR.
--- NOTE | 2022-03-10 05:31 | NUR ---
SHIFT SUMMARY: PT A/O ONE ASSIST TO BSC WITH WALKER. DRESSING CHANGE COMPLETED EARLY THIS AM DUE TO DRESSINGS FALLING OFF. MOD AMOUNT OF SEROUSANGUINEOUS DRAINAGE AND SMALL AMOUNT OF ARIAS EXUDATE. PT WAS TEARFUL DURING DRESSING CHANGE DESPITE PRE-MEDICATING WITH TYLENOL. PT RECOVERED QUICKLY POST DRESSING CHANGE. PT HAD SMALL LOOSE STOOL THIS EVENING. BROWN COLORED NO FOUL ODOR. PT PLEASANT AND COOPERATIVE WITH CARE THROUGH THE NIGHT. SHE DID ASK FOR A SLEEP AID AT 4 AM REPORTING SHE WAS HAVING A HARD TIME FALLING ASLEEP. PT ADVISED A SLEEP AID CANNOT BE GIVEN THIS LATE IN THE MORNING.
[2022-03-10 09:33] LABS: Hematocrit 34.2 % (33.0-51.0); Hemoglobin 11.3 g/dL (11.5-16.0); Mean Corpuscular Volume 85 fL (80-100); Mean Platelet Volume 8.7 fL (9.1-12.4); Platelet Count 585 K/mm3 (150-400); RDW Standard Deviation 43.7 fL (35.1-46.3); Red Blood Cell Count 4.04 M/mm3 (3.80-5.20); White Blood Cell Count 10.75 K/mm3 (4.00-11.30)
[2022-03-10 10:13] LABS: Bun/Creatinine Ratio 9.6 (12.0-20.0); Calcium, Blood 8.7 mg/dL (8.5-10.1); Creatinine, Blood 5.01 mg/dL (0.40-1.00); Potassium, Blood 5.3 mmol/L (3.5-5.5)
[2022-03-10 10:16] LABS: BASOPHILS PERCENT MAN 1 % (0-2); EOSINOPHILS ABSOLUTE MAN 0.21 K/mm3 (0.00-0.68); EOSINOPHILS PERCENT MAN 2 % (0-6); LYMPHOCYTES ABSOLUTE MAN 2.25 K/mm3 (0.84-5.20); LYMPHOCYTES PERCENT MAN 21 % (21-46); METAMYELOCYTE PERCENT MAN 1 % (0-0); MONOCYTES ABSOLUTE MAN 0.64 K/mm3 (0.16-1.47); MONOCYTES PERCENT MAN 6 % (4-13); MYELOCYTE PERCENT MAN 1 % (0-0); NEUTROPHILS ABSOLUTE MAN 7.31 K/mm3 (1.96-9.15); SEG NEUTROPHILS PERCENT MAN 68 % (41-73); TOTAL CELLS COUNTED 100
--- NOTE | 2022-03-10 18:16 | NUR ---
SHIFT SUMMARY- PT IS A/O, PLESANT AND COOPERATVIE. SHE IS EATING AND DRINKING WELL. SHE RECIEVED A BED BATH THIS SHIFT AFTER AND INC. BM. SHE IS RECIEVING TYLONEL PRN FOR PAIN. SHE WAS UP TO THE CHAIR THIS SHIFT. HER CALL LIGHT IS [employer].
--- NOTE | 2022-03-11 03:58 | NUR ---
A/Ox4; CALM AND COOPERATIVE. C/O BLE PAIN AT 9/10, DECREASES TO 8/10 WITH PRN TYLENOL. BLE DRESSINGS CDI. ABX PER ORDERS; WBC TRENDING DOWN. HTN; BP 174/95 AT SHIFT START, TELE MONITORIN CONTINUED. 1X ASSIST WITH FWW. BED ALARM SET. ENCOURAGED TO MAKE NEEDS KNOWN, CALL LIGHT IN REACH.
[2022-03-11 10:34] LABS: Albumin, Blood 1.7 g/dL (3.4-5.0); Anion Gap 7 mmol/L (6-16); Blood Urea Nitrogen 58 mg/dL (8-24); Bun/Creatinine Ratio 12.9 (12.0-20.0); CO2, Blood 21 mmol/L (21-32); Calcium, Blood 8.6 mg/dL (8.5-10.1); Chloride, Blood 107 mmol/L (98-108); Creatinine, Blood 4.48 mg/dL (0.40-1.00); Glomerular Filtration Rate 12 (60-); Glucose, Blood 112 mg/dL (70-99); Phosphorus, Blood 5.6 mg/dL (2.5-4.9); Potassium, Blood 5.7 mmol/L (3.5-5.5); Sodium, Blood 135 mmol/L (136-145)
--- NOTE | 2022-03-11 16:57 | NUR ---
ALERT AND ORIENTED, FLAT SLOW EFFECT, PLEASANT AND COOPERATIVE TO CARE, ONE PERSON STAND BY WITH FWW, USES CALL LIGHT WHEN NEEDING TO TRANSFER. NO ACUTE CHANGES, BM DIARRHEA X1. CALL LIGHT WITH IN REACH, OOB IN CHAIR, WILL RELAY TO PM RN
--- NOTE | 2022-03-12 05:22 | NUR ---
A/OX4; CALM AND COOPERATIVE. SBA TO BSC WITH FWW. C/O 03/07 FELIX AND 02/05 BLE PAIN; PRN TYLENOL GIVEN WITH MINIMAL EFFECT PER PATIENT. NEW DRESSINGS TO BLE. HRR. LUNGS CTA. C/O INABILITY TO SLEEP DESPITE TRAZADONE; ORDER OBTAINED FOR MELATONIN. CALLS APPROPIRATELY. CALL LIGHT IN REACH; ENCOURAGED TO MAKE NEEDS KNOWN
[2022-03-12 05:58] LABS: Hematocrit 31.2 % (33.0-51.0); Hemoglobin 10.1 g/dL (11.5-16.0); Mean Corpuscular HGB 27.7 pg (26.0-34.0); Mean Corpuscular HGB Conc 32.4 g/dL (31.5-36.5); Mean Corpuscular Volume 86 fL (80-100); Mean Platelet Volume 8.7 fL (9.1-12.4); Platelet Count 639 K/mm3 (150-400); RDW Coefficient Variation 14.6 % (11.7-14.2); RDW Standard Deviation 45.7 fL (35.1-46.3); Red Blood Cell Count 3.64 M/mm3 (3.80-5.20); White Blood Cell Count 13.04 K/mm3 (4.00-11.30)
[2022-03-12 07:00] LABS: Bun/Creatinine Ratio 15.4 (12.0-20.0); Calcium, Blood 8.9 mg/dL (8.5-10.1); Creatinine, Blood 4.28 mg/dL (0.40-1.00); Potassium, Blood 5.1 mmol/L (3.5-5.5)
[2022-03-12 08:14] LABS: BAND PERCENT MAN 3 % (0-8); BASOPHILS PERCENT MAN 0 % (0-2); EOSINOPHILS ABSOLUTE MAN 0.13 K/mm3 (0.00-0.68); EOSINOPHILS PERCENT MAN 1 % (0-6); LYMPHOCYTES ABSOLUTE MAN 2.34 K/mm3 (0.84-5.20); LYMPHOCYTES PERCENT MAN 18 % (21-46); MONOCYTES ABSOLUTE MAN 1.04 K/mm3 (0.16-1.47); MONOCYTES PERCENT MAN 8 % (4-13); MYELOCYTE ABSOLUTE MAN 0.52 K/mm3 (0.00-0.00); MYELOCYTE PERCENT MAN 4 % (0-0); NEUTROPHILS ABSOLUTE MAN 8.99 K/mm3 (1.96-9.15); SEG NEUTROPHILS PERCENT MAN 66 % (41-73); TOTAL CELLS COUNTED 100
--- NOTE | 2022-03-12 17:03 | NUR ---
SHIFT SUMMARY PATIENT IS ALERT AND ORIENTED X4 WITH FLAT AFFECT. PATIENT HAS HAD NO ACUTE EVENTS THIS SHIFT. VITAL SIGNS REVIEWED. PATIENT HAS BEEN GETTING TYLENOL PRN FOR PAIN FOR CELLULITIS ON LOWER LEG. PATIENT HAS HAD NO COMPLAINTS OF NAUSEA, SOB OR VOMITTING THIS SHIFT. PATIENT HAD A SHOWER TODAY. PATIENT HAS HAD CT OF LOWER LEG AND IT SHOWS IMPROVEMENT.
--- NOTE | 2022-03-13 04:23 | NUR ---
NIGHTSHIFT SUMMARY Patient AOx4, showered this evening, changed BLE dressings after. RLE large open wound w/ granulated tissue posterior RLE. LLE 3 open wounds located anterior leg. Slough & granulated tissue noted in wound beds. Moderate exudated noted on dressings. Patient reports 8/10 pain in BLE. Tylenol given for pain. Patient reports difficulty sleeping, awake most of the night. Trazadone HS & Melatonin given, sleep aids not effective. No acute changes to patient status, awaiting discharge planning. Will continue to monitor.
[2022-03-13 05:29] LABS: BASOPHILS ABSOLUTE AUTO 0.08 K/mm3 (0.00-0.23); BASOPHILS PERCENT AUTO 1 % (0-2); EOSINOPHILS ABSOLUTE AUTO 0.44 K/mm3 (0.00-0.68); EOSINOPHILS PERCENT AUTO 3 % (0-6); Hematocrit 33.5 % (33.0-51.0); Hemoglobin 10.7 g/dL (11.5-16.0); IMMATURE GRAN ABSOLUTE AUTO 0.64 K/mm3 (0.00-0.10); IMMATURE GRAN PERCENT AUTO 5 % (0-1); LYMPHOCYTES ABSOLUTE AUTO 1.98 K/mm3 (0.84-5.20); LYMPHOCYTES PERCENT AUTO 16 % (21-46); MONOCYTES ABSOLUTE AUTO 0.81 K/mm3 (0.16-1.47); MONOCYTES PERCENT AUTO 6 % (4-13); Mean Corpuscular HGB 27.7 pg (26.0-34.0); Mean Corpuscular HGB Conc 31.9 g/dL (31.5-36.5); Mean Corpuscular Volume 87 fL (80-100); Mean Platelet Volume 8.7 fL (9.1-12.4); NEUTROPHILS ABSOLUTE AUTO 8.81 K/mm3 (1.96-9.15); NEUTROPHILS PERCENT AUTO 69 % (41-73); Platelet Count 605 K/mm3 (150-400); RDW Coefficient Variation 14.6 % (11.7-14.2); RDW Standard Deviation 46.3 fL (35.1-46.3); Red Blood Cell Count 3.86 M/mm3 (3.80-5.20); White Blood Cell Count 12.76 K/mm3 (4.00-11.30)
[2022-03-13 06:03] LABS: Bun/Creatinine Ratio 22.8 (12.0-20.0); Calcium, Blood 9.4 mg/dL (8.5-10.1); Creatinine, Blood 3.29 mg/dL (0.40-1.00); Potassium, Blood 4.9 mmol/L (3.5-5.5)
[2022-03-13] MEDS ORDERED: CEPH500 PO (14:12)
--- NOTE | 2022-03-13 17:18 | NUR ---
DISCHARGE INSTRUCTIONS DONE, PATIENT STATES UNDERSTANDING OF INSTRUCTIONS, FOLLOW UPS, AND MEDICATIONS. TELE OFF, PG STILL IN PLACE, PATIENT WAITING TO SEE IF A RIDE FROM [facility] CAN COME AND GET HER
--- NOTE | 2022-03-13 17:56 | NUR ---
[employer] WORKING ON TRANSPORTATION FOR PATIENT, PATIENT WAS UNABLE TO CONNECT WITH ANY TRANSPORTATION
--- NOTE | 2022-03-13 18:27 | NUR ---
ALERT AND OREINTED, SLOW TO RESPOND, DISCHARGE ON HOLD DUE TO PATIENT UNABLE TO GIVE A ADDRESS, REMEBER WHERE THE HOUSE IS OR HER FRIENDS REPLYING FOR TRANSPORT. TELE TO BE ON AND DISCONTINUED TOMORROW WHEN DISCHARGED, NO ACUTE CHANGES, SUMEET PG IN PLACE, CALL LIGHT WITH IN REACH
--- NOTE | 2022-03-14 05:59 | NUR ---
NIGHTSHIFT SUMMARY No acute changes to patient status, plan is to discharge in AM. Patient requested tylenol for BLE/cellulitis pain, PRN effective. IV ABX administred, vitals stable. Changed leg dressings this am, moderate drainage noted on ABD pads/masorb pads. Mild odor noted during dressing change. LLE Wound beds, 100% granulated tissue, covered with yellow slough. RLE open wound noted on calf, no slough noted on wound bed. Applied new dressings & secured with HUDSON wraps. No other concerns this shift. Will continue to monitor.
--- NOTE | 2022-03-14 12:28 | NUR ---
1228- DISCHARGE PATIENT WAS DISCHARGED TO HOME AT A FRIENDS HOUSE, WITH A RIDE FROM MEDICAL TRANSPORT. DISCHARGE INSTRUCTIONS AND PATIENT EDUCATION WERE PROVIDED YESTERDAY AND PATIENT HAS PAPERWORK. ADDED TO THE PAPERWORK WAS THAT WOUND CARE WOULD BE CONTACTED THE PATIENT, AND THAT HER INSURANCE [employer] WOULD ALSO CONTACT HER TO MAKE SURE SHE HAS ALL THAT IS NEEDED IN ORDER TO FOLLOW UP WITH WOUND CARE AN OUTPATIENT. POWERGLIDE WAS REMOVED AND PATIENT WAS WHEELED DOWN IN A WC BY [facility] STAFF.
== END 2022-03-14 13:12 | disposition home or self-care (01) | DRG 871 ==
LOC: ER 13:12 → MEDS 15:33
PROVIDERS: Emergency Medicine; Internal Medicine; Internal Medicine Nephrology; Student in an Organized Health Care Education/Training Program; ADMIT Internal Medicine
DX: A41.9 Sepsis, unspecified organism (principal); N17.0 Acute kidney failure with tubular necrosis; L03.116 Cellulitis of left lower limb; L03.115 Cellulitis of right lower limb; E87.1 Hypo-osmolality and hyponatremia; F17.200 Nicotine dependence, unspecified, uncomplicated; I10 Essential (primary) hypertension; Z79.82 Long term (current) use of aspirin; E88.09 Other disorders of plasma-protein metabolism, not elsewhere classified; E66.9 Obesity, unspecified; Z59.00 Homelessness unspecified; E87.6 Hypokalemia; F19.11 Other psychoactive substance abuse, in remission
CPT/HCPCS: 36415; 36416; 73700; 76770; 80048; 80053; 80069; 80202; 81001; 82550; 82570; 82947; 83605; 83615; 83735; 83880; 84100; 84156; 84300; 85025; 85027; 86160; 87040; 87070; 87075; 87077; 87147; 87186; 87205; 93308; 93321; 93971; 96365; 99285-25; A9270; C1751; J0690; J1644; J1885; J1940; J2405; J2543; J3370; J7030; J7050

== ENCOUNTER 2022-09-19 15:22 | Emergency (ER) | payer OTHER ==
[~2022-09-19] VITALS: Ht 160 cm; Wt 108.9 kg
[2022-09-19 16:28] LABS: BASOPHILS ABSOLUTE AUTO 0.02 K/mm3 (0.00-0.23); BASOPHILS PERCENT AUTO 0 % (0-2); EOSINOPHILS ABSOLUTE AUTO 0.12 K/mm3 (0.00-0.68); EOSINOPHILS PERCENT AUTO 2 % (0-6); Hematocrit 44.6 % (33.0-51.0); Hemoglobin 14.5 g/dL (11.5-16.0); IMMATURE GRAN ABSOLUTE AUTO 0.01 K/mm3 (0.00-0.10); IMMATURE GRAN PERCENT AUTO 0 % (0-1); LYMPHOCYTES PERCENT AUTO 24 % (21-46); MONOCYTES ABSOLUTE AUTO 0.34 K/mm3 (0.16-1.47); MONOCYTES PERCENT AUTO 5 % (4-13); Mean Corpuscular HGB 27.8 pg (26.0-34.0); Mean Corpuscular HGB Conc 32.5 g/dL (31.5-36.5); Mean Corpuscular Volume 85 fL (80-100); Mean Platelet Volume 9.7 fL (9.1-12.4); NEUTROPHILS ABSOLUTE AUTO 4.78 K/mm3 (1.96-9.15); NEUTROPHILS PERCENT AUTO 69 % (41-73); Platelet Count 283 K/mm3 (150-400); RDW Coefficient Variation 14.1 % (11.7-14.2); RDW Standard Deviation 43.8 fL (35.1-46.3); Red Blood Cell Count 5.22 M/mm3 (3.80-5.20); White Blood Cell Count 6.97 K/mm3 (4.00-11.30)
[2022-09-19 16:46] LABS: Albumin, Blood 3.3 g/dL (3.4-5.0); Albumin/Globulin Ratio 0.6 (0.8-1.8); Bilirubin, Total 0.4 mg/dL (0.1-1.0); Calcium, Blood 9.3 mg/dL (8.5-10.1); Creatinine, Blood 0.64 mg/dL (0.40-1.00); Globulin, Blood 5.2 g/dL (2.2-4.0); Potassium, Blood 3.6 mmol/L (3.5-5.5); Total Protein, Blood 8.5 g/dL (6.4-8.2)
[2022-09-19] MEDS ORDERED: CEPH500 PO (18:24)
[2022-09-19] MEDS ORDERED: SULTRIDS PO (18:24)
[2022-09-19 18:30] VITALS: BP 155/84
== END 2022-09-19 19:03 | disposition home or self-care (01) ==
LOC: ER 15:22
PROVIDERS: Student in an Organized Health Care Education/Training Program
DX: S81.802A Unspecified open wound, left lower leg, initial encounter (principal); I87.2 Venous insufficiency (chronic) (peripheral); L03.116 Cellulitis of left lower limb; X58.XXXA Exposure to other specified factors, initial encounter; Z79.899 Other long term (current) drug therapy; Z79.82 Long term (current) use of aspirin; I10 Essential (primary) hypertension; J45.909 Unspecified asthma, uncomplicated; F17.210 Nicotine dependence, cigarettes, uncomplicated
CPT/HCPCS: 36415; 71046; 80053; 83880; 85025; 93005; 93010; 99284-25; A9270

== ENCOUNTER 2022-09-19 22:35 | Emergency (ER) | payer OTHER ==
[~2022-09-19] VITALS: Ht 160 cm; Wt 108.9 kg
[~2022-09-19 22:35] MED LIST changes: +SULTRIDS PO
[2022-09-19 22:40] VITALS: BP 154/114
== END 2022-09-20 00:07 | disposition home or self-care (01) ==
LOC: ER 22:35
DX: J02.9 Acute pharyngitis, unspecified (principal); R11.0 Nausea; R05.9 Cough, unspecified; Z79.899 Other long term (current) drug therapy; Z79.82 Long term (current) use of aspirin; I10 Essential (primary) hypertension; J45.909 Unspecified asthma, uncomplicated; F17.210 Nicotine dependence, cigarettes, uncomplicated
CPT/HCPCS: 99283; A9270

== ENCOUNTER → 2023-01-05 | Outpatient (CLI) | payer OTHER | LOC: LAB SHORT 11:00 → LAB 11:00 | DX: J02.9 Acute pharyngitis, unspecified (principal) | CPT/HCPCS: 87081 ==